=== PATIENT | male | born 1995 | race Caucasian/White ===

== ENCOUNTER 2019-02-01 14:01 | Inpatient (IN) ==
[2019-02-01] MEDS ORDERED: ZOFRAN IV PRN (14:23)
[2019-02-01] MEDS ORDERED: AUGMENTIN PO SCH (14:30)
--- NOTE | 2019-02-01 14:58 | Diag Imaging Result Doc PS360 ---
EXAM: CHEST-2 VIEWS 02/01/2019 HISTORY: Fever TECHNIQUE: AP and lateral chest COMMENT: There are no previous studies. The inspiration is suboptimal. The heart size appears to be enlarged. There is a right-sided ventriculoperitoneal shunt catheter. The lungs are clear. IMPRESSION: Poor inspiration. Apparent cardiomegaly. Electronically signed by Cuate Turner 02/01/2019 2:56 PM
[2019-02-01 15:22] LABS: URINE SOURCE CLEAN CATCH
[2019-02-01 15:26] LABS: BILIRUBIN URINE NEGATIVE (NEGATIVE); BLOOD URINE MODERATE (NEGATIVE); COLOR YELLOW; GLUCOSE URINE NEGATIVE (NEGATIVE); KETONE URINE NEGATIVE (NEGATIVE); LEUKOCYTES URINE LARGE (NEGATIVE); NITRITE URINE NEGATIVE (NEGATIVE); PROTEIN URINE 70 mg/dL (NEGATIVE); SP GRAVITY URINE 1.028; TURBIDITY URINE CLEAR (CLEAR); UROBILINOGEN URINE 4 mg/dL (NORMAL)
[2019-02-01 15:27] LABS: UR EPITHELIAL CELLS <10 /HPF (<10); URINE BACTERIA NEGATIVE /HPF; URINE RBC TNTC /HPF (<10); URINE WBC TNTC /HPF (<10)
[2019-02-01 15:37] LABS: BASO# 0.03 X1000 (0.0-0.2); BASO% 0.2 % (0.0-0.8); EOS# 0.04 X1000 (0.0-0.7); EOS% 0.2 % (0.0-10.0); HEMATOCRIT 44.2 % (42.0-52.0); HEMOGLOBIN 14.5 g/dL (14.0-18.0); IMM GRAN# 0.04 X1000 (0.0-0.04); IMM GRAN% 0.2 % (0.0-0.5); LYMPH# 1.28 X1000 (1.2-3.4); LYMPH% 7.5 % (20.5-51.1); MCH 29.2 PG (27-31); MCHC 32.8 g/dL (33-37); MCV 89.1 FL (81-99); MONO# 1.38 X1000 (0.11-0.59); MONO% 8.1 % (1.7-9.3); MPV 12.3 FL (7.4-10.4); NEUT# 14.31 X1000 (1.4-6.5); NEUT% 83.8 % (42.2-75.2); PLT 203 X1000 (130-400); RBC 4.96 XMIL (4.7-6.1); RDW 13.7 % (11.5-14.5); WBC 17.08 X1000 (4.8-10.8)
[2019-02-01 16:08] LABS: AGAP 14; BUN 11 mg/dL (8-22); CHLORIDE 101 mmol/L (98-107); COSMO 279; CREATININE 1.1 mg/dL (0.7-1.2); ESTIMATED GFR > 60; GLUCOSE 138 mg/dL (70-104); POTASSIUM 3.4 mmol/L (3.5-5.1); SODIUM 139 mmol/L (136-145); TCO2 24 mmol/L (25-35)
[2019-02-01 16:09] LABS: ALB/GLOB RATIO 1.4; ALBUMIN 4.1 g/dL (3.5-5.0); ALKALINE PHOSPHATASE 87 U/L (32-122); AMYLASE 46 U/L (20-200); CALCIUM 8.9 mg/dL (8.8-10.2); GOT 20 U/L (10-34); GPT 22 U/L (10-44); LIPASE 40 U/L (13-60); TOTAL BILIRUBIN 1.11 mg/dL (0.20-1.00); TOTAL PROTEIN 7.1 g/dL (6.3-8.3)
[2019-02-01] MEDS: NS 1,000 ML IV SCH (17:09)
[2019-02-01] MEDS: TYLENOL PO PRN (18:49)
[2019-02-01] MEDS: MIRALAX PO SCH (20:13)
[2019-02-01] MEDS: ZOSYN 3.375 GM in NS 50 ML IV SCH (20:13)
[2019-02-01] MEDS: CLARITIN PO SCH (20:13)
[2019-02-01] MEDS: NORCO-5 PO PRN (20:14)
--- NOTE | 2019-02-01 21:52 | HISTORY AND PHYSICAL ---
PRIMARY CARE PHYSICIAN: Dr. Asa Shin. CHIEF COMPLAINT: Fever. HISTORY OF PRESENT ILLNESS: A 23-year-old white male with a complicated past medical history presents for evaluation of above-mentioned current symptoms. Current history of present illness began on Thursday night. At approximately 9:30, he developed acute onset rectal pain, dysuria, and nausea. Pain remained present throughout the night. He was unable to sleep soundly secondary to the pain. At approximately 10 a.m. he took half of a Loraine and a Diflucan. The symptoms improved significantly. Patient denied fevers, chills, constipation, hematochezia, melena, or low back pain at that time. The patient was seen in my office yesterday evening. Urinalysis at that time was performed revealing modest blood and modest white blood cells. No bacteria was identified. As patient's pain and symptoms had improved considerably, no further intervention was pursued. Overnight, unfortunately, patient states he felt poorly. The patient developed a fever as high as 102. He was unable rest secondary to the fever. He did, however, note improvement in his rectal and urethral pain. The patient contacted my office this morning. A CT renal stone search was performed returning with a small hiatal hernia, prominent fatty infiltration of liver, and constipation. Upon arrival at my office, patient was again febrile. He was noted to have some intermittent nausea and vomiting. His white blood cell count also was noted to be elevated. Because of his condition, it was felt that inpatient management was most appropriate. Upon walking to his car, patient developed profound weakness nearly falling to the ground. The patient will be admitted to the hospital for full evaluation and management. Additional symptoms include only that of headaches. The patient denies current cough, congestion, shortness of breath, chest discomfort, palpitations, sinus tenderness, sore throat, or ear pain. PAST MEDICAL HISTORY: 1. Anxiety. 2. Constipation. 3. Reflux disease. 4. Hypertension. 5. Headaches. 6. Bilateral hearing loss treated with hearing aid intervention. 7. Bilateral inguinal hernia repairs in 1996. 8. History of hydrocephalus at 18 months requiring shunt placement. 9. Incisional hernia diagnosed in 1995 requiring surgical intervention. 10. Legg-Perthes disease status post surgical intervention to the left hip in 2002. 11. Low HDL. 12. Obstructive sleep apnea requiring BiPAP. 13. Osteoarthritis. 14. Osteopenia. 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 16. Chronic otitis media. 17. Hypothyroidism. 18. History of a tonsillectomy and adenoidectomy in 1999. 19. History of a varicocele. 20. Varicose veins. 21. History of deep venous thrombosis treated with fondaparinux. CURRENT MEDICATIONS: 1. AcipHex 20 mg daily. 2. Allopurinol 100 mg daily. 3. Anusol suppositories as needed. 4. Claritin 10 mg at bedtime. Fondaparinux injected daily. 1. Levothyroxine 88 mcg daily. 2. MiraLAX 1/4 of a cap in 8 ounces of juice daily. 3. Loraine 5/325 every 4 to 6 hours as needed. 4. Zofran as needed. ALLERGIES: Patient states he is allergic to Betadine which causes a rash and Versed which causes respiratory compromise. SOCIAL HISTORY: Patient denies tobacco, alcohol or illicit drug use. FAMILY HISTORY: Patient's father is age 49 and reported as healthy. Patient's mother is age 47 and has a history of high blood pressure. REVIEW OF SYSTEMS: A 12 point review of systems was performed. Pertinent positives and negatives are noted in history present illness. PHYSICAL EXAMINATION: Temperature 102.8 degrees, heart rate 114, respirations 20, blood pressure is 112/62. GENERAL: No acute distress. HEENT: Normocephalic, atraumatic, pupils equal, round reactive to light. Extraocular muscles intact. Sclerae anicteric. Innovation conjunctivae. Oral and nasopharynx clear without exudate. NECK: Supple. No lymphadenopathy. No thyromegaly. No bruits auscultated. CARDIOVASCULAR: Tachycardic, regular rhythm. No significant murmurs, rubs, or gallops. PULMONARY: Clear to auscultation bilaterally. ABDOMEN: Soft, nontender, nondistended. Positive bowel sounds. EXTREMITIES: Moves all extremities well. No significant clubbing, cyanosis, or edema. NEUROLOGIC: Cranial nerves 2-12 grossly intact. Motor and sensory grossly intact. PSYCHOLOGIC: Appropriate. LABORATORY DATA: White blood cell count 17.08, hemoglobin 14.5, hematocrit 44.2, platelet count 230,000. Sodium 139, potassium 3.4, chloride 101, bicarb 24, BUN 11, creatinine 1.1, glucose 138, calcium 8.9, total bilirubin 1.11, total protein 7.1, albumin 4.1, alkaline phosphatase 87, AST 20, ALT 22, amylase 46, lipase 40. Urinalysis reveals too many to count white blood cells and too many to count red blood cells. Negative bacteria. Chest x-ray revealed poor inspiration. Apparent cardiomegaly. CT renal stone search suggested a small hiatal hernia, prominent fatty infiltration of the liver and constipation. ASSESSMENT/PLAN: 23-year-old white male with a complicated past medical history presents for evaluation of fevers. As above, while in office, patient developed intractable nausea and vomiting and a near syncopal episode. Thus far, the source of the infection is queried but possibly related to an abnormal urinalysis. The patient will be admitted to the hospital for full evaluation and management. 1. Admit to General Medicine. 2. Fevers-upon admission, patient was noted to have a high fever. Rapid strep and rapid flu returned negative. Urinalysis is borderline. We will draw blood cultures x2. We will empirically place patient on Zosyn therapy. We will remain aware that patient could have sinus disease or progressive of his otitis, however with the degree of fever, this seems less likely. Should patient's fever continue, we will consider broadening coverage with vancomycin therapy. 3. Intractable nausea and vomiting-this likely is a consequence of his high fever. The patient has no significant abdominal discomfort. At this point, we will treat supportively. We will start patient on IV hydration. 4. Near syncopal episode-this likely was a consequence of a vasovagal event. We will treat patient with IV hydration. We will follow this closely as well. 5. Lower abdominal discomfort-this has essentially resolved from yesterday. The question is raised whether this is also a source of his fever. The patient does have constipation per CT scan. We will work toward evacuating this with MiraLAX. We will follow this as well. 6. History of hydrocephalus-at this point, this likely is noncontributory. Should etiology of the infection remain queried, we will consider whether his shunt could be infected. This seems less likely without mental status changes. 7. Recurrent deep venous thromboses-we will continue patient on fondaparinux therapy. 8. Fluid, electrolytes, nutrition. We will monitor electrolytes. Normal saline at 50 mL an hour. Regular diet. 9. Prophylaxis. Patient will be continued on fondaparinux. Steven#: [id number] cc: Asa Shin MD
[2019-02-02] MEDS: ZOSYN 3.375 GM in NS 50 ML IV SCH ×3 (01:42→13:58)
[2019-02-02] MEDS: TYLENOL PO PRN ×4 (01:42→17:12)
[2019-02-02] MEDS: NORCO-5 PO PRN (02:38)
[2019-02-02] MEDS: PATIENT'S OWN MED SUBQ SCH ×2 (06:39→20:05)
[2019-02-02 06:53] LABS: BASO# 0.04 X1000 (0.0-0.2); BASO% 0.2 % (0.0-0.8); EOS# 0.01 X1000 (0.0-0.7); HEMOGLOBIN 13.8 g/dL (14.0-18.0); IMM GRAN# 0.09 X1000 (0.0-0.04); IMM GRAN% 0.4 % (0.0-0.5); LYMPH# 2.21 X1000 (1.2-3.4); LYMPH% 9.8 % (20.5-51.1); MCH 29.4 PG (27-31); MCHC 32.9 g/dL (33-37); MCV 89.6 FL (81-99); MONO# 1.52 X1000 (0.11-0.59); MONO% 6.7 % (1.7-9.3); MPV 12.2 FL (7.4-10.4); NEUT# 18.79 X1000 (1.4-6.5); NEUT% 82.9 % (42.2-75.2); PLT 168 X1000 (130-400); RBC 4.69 XMIL (4.7-6.1); RDW 13.8 % (11.5-14.5); WBC 22.66 X1000 (4.8-10.8)
[2019-02-02 06:56] LABS: AGAP 10; ALB/GLOB RATIO 1.1; ALBUMIN 3.2 g/dL (3.5-5.0); ALKALINE PHOSPHATASE 74 U/L (32-122); BUN 10 mg/dL (8-22); CHLORIDE 102 mmol/L (98-107); COSMO 278; ESTIMATED GFR > 60; GLUCOSE 149 mg/dL (70-104); GOT 36 U/L (10-34); GPT 32 U/L (10-44); POTASSIUM 3.5 mmol/L (3.5-5.1); SODIUM 138 mmol/L (136-145); TCO2 26 mmol/L (25-35); TOTAL BILIRUBIN 1.37 mg/dL (0.20-1.00)
[2019-02-02] MEDS ORDERED: VANCOMYCIN IV PER PHARMACY MISC SCH (07:15)
[2019-02-02] MEDS ORDERED: ZOSYN ONE (08:59)
[2019-02-02] MEDS ORDERED: VANCOMYCIN 1,600 MG in NS 250 ML IV SCH (09:00)
[2019-02-02] MEDS: ZYLOPRIM PO SCH ×2 (09:51→12:32)
[2019-02-02] MEDS: PRILOSEC PO SCH (09:53)
[2019-02-02] MEDS: NS 1,000 ML IV SCH ×2 (14:37→14:39)
[2019-02-02] MEDS ORDERED: CUBICIN 500 MG in NS 100 ML IV SCH (17:00)
--- NOTE | 2019-02-02 17:21 | Diag Imaging Result Doc PS360 ---
EXAM: US RENAL 2 (RETROPER) COMPLETE 02/02/2019 HISTORY: UTI TECHNIQUE: Renal ultrasound COMMENT: The right kidney is 12.6 x 4.8 x 6.1 cm the left is 11.3 x 5.3 x 6.4 cm. There is no evidence of hydronephrosis or mass. The urinary bladder is not particularly distended and has a prevoid volume of 328.6 mL and a postvoid volume of 18.3 mL. IMPRESSION: No evidence of obstructive uropathy. Electronically signed by Cuate Turner 02/02/2019 5:19 PM
[2019-02-03] MEDS: TYLENOL PO PRN ×2 (00:15→19:48)
[2019-02-03] MEDS: CLARITIN PO SCH ×3 (00:51→20:03)
[2019-02-03] MEDS: MIRALAX PO SCH ×3 (00:51→20:03)
--- NOTE | 2019-02-03 04:24 | INFECTIOUS DISEASE CONSULT REP ---
DATE: 02/02/2019 CONCLUSION: The patient has a gram-positive coccal urinary tract infection. I am concerned that he may have some sort of blockage which either prevents him from passing his urine from the bladder, or if he has blockage in one of his ureters causing hydronephrosis. RECOMMENDATIONS: I have discontinued Zosyn and vancomycin, and I have started the patient on daptomycin. I have also ordered a bladder scan to be done, and I have also ordered a ultrasound of the kidneys with measurement of the postvoid residual urine. DISCUSSION: The patient's history was obtained from his mother. The patient about 4 days ago had dysuria and rectal pain. His urinalysis showed white cells and red cells, but no bacteria. He has had high fever. He also has a sensation that his ears are full. His CBC shows a white count of 22,660, hemoglobin 13.8. The patient also today had some loose stools. He also is anorectic in the past day or 2. He also has some dizziness. LABORATORY DATA: Laboratory studies show a CBC with a white count of 22,660, hemoglobin 13.8 and platelet count 168,000. Creatinine is 1. GFR is greater than 60. Urinalysis showed white cells and red cells, but no bacteria. Swab for influenza and streptococcal tests are both negative. The urine is growing a gram-positive coccus. PAST MEDICAL HISTORY/REVIEW OF SYSTEMS: The patient has decreased hearing, but his vision is okay. He does not have any problem breathing. Normally he has good appetite and he is able to pass his urine and bowel movements without difficulty. He has not been having any joint pain or muscle aches. Medical diseases positive for hypothyroidism, gout, deep venous thrombosis in the right leg, and gastroesophageal reflux disease. INFECTIOUS DISEASE HISTORY: Negative for pneumonia and UTI. FAMILY HISTORY: Positive for hypertension and myocardial infarction. SOCIAL HISTORY: The patient lives with his mother. The patient has a dog as a pet. He does not smoke cigarettes, drink alcoholic beverages or abuse drugs. ALLERGIES: He is allergic to Betadine. MEDICATIONS: At home he takes Synthroid, allopurinol, fondaparinux, hydrocodone, Claritin, Prilosec, Zofran, MiraLAX. PHYSICAL EXAMINATION: Vital signs: Temperature is 102.9 degrees, pulse 99, respirations 16, blood pressure 122/84. Generally, this is an ill-appearing young male. He is in no acute distress. Head, eyes, ears, nose and throat: He is wearing hearing aids. He has marked deformity to his face. There is no drainage from his nose or ears.Neck: No meningismus. Lungs clear to auscultation. Cardiovascular: Heart rate is regular. Abdomen is soft and nontender. Genitalia: There is some slight erythema of the scrotum. It is not swollen. It is not tender. The patient's mother says that he does sometimes have a little erythema on the scrotum. Visual inspection of the rectum showed some small tissues coming out. I do not think they were hemorrhoids. There was no bleeding noted. Neurologic: The patient is awake. He can talk and he can hear my spoken words. There is no tremor. Integument: No rash. Thank you for the consult. cc: MD Asa Sena MD
[2019-02-03 07:11] LABS: BASO# 0.02 X1000 (0.0-0.2); BASO% 0.1 % (0.0-0.8); EOS# 0.16 X1000 (0.0-0.7); EOS% 1.1 % (0.0-10.0); HEMATOCRIT 38.6 % (42.0-52.0); HEMOGLOBIN 12.7 g/dL (14.0-18.0); IMM GRAN# 0.05 X1000 (0.0-0.04); IMM GRAN% 0.3 % (0.0-0.5); LYMPH# 1.91 X1000 (1.2-3.4); LYMPH% 13.1 % (20.5-51.1); MCH 29.6 PG (27-31); MCHC 32.9 g/dL (33-37); MONO# 1.01 X1000 (0.11-0.59); MONO% 6.9 % (1.7-9.3); MPV 12.4 FL (7.4-10.4); NEUT# 11.43 X1000 (1.4-6.5); NEUT% 78.5 % (42.2-75.2); PLT 134 X1000 (130-400); RBC 4.29 XMIL (4.7-6.1); RDW 13.5 % (11.5-14.5); WBC 14.58 X1000 (4.8-10.8)
--- NOTE | 2019-02-03 07:21 | PROGRESS NOTE ---
DATE: 02/02/2019 SUBJECTIVE: Upon my arrival this morning, unfortunately, the patient continued to have fever. He denied specific symptoms, however. Antibiotics have been continued. His fevers were treated with Tylenol therapy. With the persistence of fevers, antibiotics were broad. During the day today, a urine culture returned positive for gram-positive cocci. Dr. Nguyen was consulted. Antibiotics were adjusted to include only daptomycin therapy. This evening, patient is resting in bed. He, unfortunately, continues to have fever. He denies dysuria, hematuria, pyuria, cough, congestion, or shortness of breath. OBJECTIVE: T-max 102.9, heart rate 99 to 124, respirations 16 to 20, blood pressure 112-142/62- 100. General: No acute distress. Cardiovascular: Slightly tachycardic. Regular rhythm. No significant murmurs, rubs, or gallops. Pulmonary: Clear to auscultation bilaterally. Abdomen: Soft, nontender, nondistended. Positive bowel sounds. Extremities: Moves all extremities well. No significant clubbing, cyanosis, or edema. Dermatologic: Evaluation reveals no evidence of rash. Laboratory Data: White blood cell count 22.66, hemoglobin 13.8, hematocrit 42.0, platelet count 168,000. Sodium 138, potassium 3.5, chloride 102, bicarb 26, BUN 10, creatinine 1.0, glucose 149, calcium 8.0. Total bilirubin 1.37, total protein 6.0, albumin 3.2, alkaline phosphatase 74, AST 36, ALT 32. ASSESSMENT AND PLAN: 1. Fevers-at this point, this appears to be secondary to a urinary tract infection. I remain concerned, however, that the patient's presentation was atypical. He remains afebrile despite antibiotic intervention. Also, on the differential is that of a prostatitis, sinus disease, and occult abscess. We will follow patient's urine cultures. We will also follow wound cultures. I appreciate Dr. Nguyen' consultation. We will continue daptomycin for now. 2. Intractable nausea and vomiting-patient has achieved improvement in this regard. We will continue as-needed Zofran therapy. 3. Near syncopal episode-this likely was secondary to his acute illness. We will continue hydration. 4. Lower abdominal discomfort/pelvic discomfort - this certainly could be secondary to prostatitis. We will also remain aware that the CT scan suggested significant constipation, that this could also be the source. Overall, his symptoms are improving. We will continue treatment as above. 5. History of hydrocephalus with a shunt placed. We will remain aware that patient could have developed a shunt infection. However, this seems less likely with normal mental status. 6. Recurrent deep venous thromboses-we will continue fondaparinux therapy. 7. Disposition-at this point, patient continues to require chcf care in a hospital setting. We will plan discharge home once appropriate. cc: Asa Shin MD MTDD
[2019-02-03 07:52] LABS: AGAP 9; ALBUMIN 2.9 g/dL (3.5-5.0); ALKALINE PHOSPHATASE 88 U/L (32-122); BUN 8 mg/dL (8-22); CALCIUM 8.5 mg/dL (8.8-10.2); CHLORIDE 105 mmol/L (98-107); COSMO 278; CREATININE 0.9 mg/dL (0.7-1.2); ESTIMATED GFR > 60; GLUCOSE 105 mg/dL (70-104); GOT 30 U/L (10-34); GPT 39 U/L (10-44); POTASSIUM 3.7 mmol/L (3.5-5.1); SODIUM 140 mmol/L (136-145); TCO2 26 mmol/L (25-35); TOTAL BILIRUBIN 1.17 mg/dL (0.20-1.00); TOTAL PROTEIN 5.9 g/dL (6.3-8.3)
[2019-02-03] MEDS: SYNTHROID PO SCH (12:04)
[2019-02-03] MEDS: AMPICILLIN 2 GM/NS 2 GM/100 ML IVPB IV SCH ×2 (12:05→18:09)
[2019-02-03] MEDS: PRILOSEC PO SCH (12:05)
[2019-02-03] MEDS: NORCO-5 PO PRN (14:04)
[2019-02-03] MEDS: ZYLOPRIM PO SCH (14:28)
--- NOTE | 2019-02-03 15:29 | INFECTIOUS DISEASE PROGRESS NO ---
DATE: 02/03/2019 PRESENT ILLNESS: The patient has an enterococcal urinary tract infection. In view of the fact that the patient has had a high fever and leukocytosis and has been very ill with his urinary tract infection, I suspect that it involves his prostate and possibly his kidneys, even though on ultrasound there did not seem to be any kidney involvement. MEDICATIONS: The patient was on daptomycin. I have switched him today to ampicillin 2 g IV every 6 hours. PHYSICAL EXAMINATION: Vital Signs: Temperature is 100.4 degrees, pulse 106, respirations 18, blood pressure 145/103. General: This is an obese young male. He is in no acute distress. Head/eyes/ears/nose/throat: He can hear my spoken words and see near objects. He does have a facial deformity. He does not have any white patches on his tongue. Neck: He does not seem to have any pain when he moves his neck or head. Lungs: Clear to auscultation. Cardiovascular: Heart rate is regular. Abdomen: There is no abdominal or flank tenderness. Neurologic: Patient is alert. He can move his extremities. There is no tremor. LAB AND X-RAY: The patient's urine culture grew out Enterococcus. The CBC today shows the white count is down to 14,580, hemoglobin 12.7, and platelet count 134,000. Creatinine is 0.9. GFR is greater than 60. Liver function studies are normal. Blood cultures are negative. The patient's renal ultrasound showed no abnormalities, and it also showed that the patient empties his bladder almost completely. ASSESSMENT AND PLAN: The patient has an enterococcal urinary tract infection. It may well involve his prostate and/or kidneys. I would suggest treating the patient with IV ampicillin until he is afebrile, and his white count is either normal or very close to being normal. When that is reached, then I think the patient can be switched to amoxicillin 500 mg p.o. every 8 hours to complete a total of 2 weeks of treatment. Furthermore, I would suggest that after he has finished his antibiotic for a week, I would suggest repeating his urine culture and, if it grows Enterococcus again, then I would suggest treating him with amoxicillin 500 mg oral every 8 hours for a total of 6 weeks. COMORBIDITIES: The patient's comorbidities: I cannot really find a comorbidity that causes this patient to have a urinary tract infection. cc: MD Asa Sena MD
--- NOTE | 2019-02-03 22:25 | PROGRESS NOTE ---
DATE: 02/03/2019 SUBJECTIVE: Patient was originally seen this morning. At that time, patient stated that he had rested better overnight. His fevers continued, but have decreased considerably with the use of Tylenol. The patient noted an increase in energy. His p.o. intake was adequate. This afternoon, upon my arrival, patient noted a reasonable day. His fever had been low grade. He denies nausea, vomiting, shortness of breath, or chest discomfort. He is having frequent loose stools. He denies dysuria, hematuria, and pyuria. OBJECTIVE: Vital Signs: T-max 102.5 degrees, heart rate 92 to 120, respirations 16 to 20, blood pressure 135 to 152 over 80 to 103. General: No acute distress. Cardiovascular: Regular rate and rhythm. No significant murmurs, rubs, or gallops. Pulmonary: Clear to auscultation bilaterally. Abdomen: Soft, nontender, nondistended. Positive bowel sounds. Extremities: Moves all extremities well. No significant clubbing, cyanosis, or edema. Dermatologic: Evaluation reveals no evidence of rash. LABORATORY DATA: White blood cell count 14.58, hemoglobin 12.7, hematocrit 38.6, platelet count 134,000. Sodium 140, potassium 3.7, chloride 105, bicarb 26, BUN 8, creatinine 0.9, glucose 105, calcium 8.5, total bilirubin 1.17, total protein 5.9, albumin 2.9, alkaline phosphatase 88, AST 30, ALT 39. Urine culture has grown Enterococcus faecalis. ASSESSMENT AND PLAN: 1. Fever, secondary to urinary tract infection/prostatitis: Patient's urine culture grew Enterococcus faecalis. Blood cultures are negative. Unfortunately, he continues to have fairly significant fevers. For now, we will continue ampicillin as recommended per Dr. Nguyen. Once the patient is afebrile for 48 hours, we will plan discharge home. 2. Intractable nausea and vomiting: This is likely secondary to his acute illness. This has resolved. He is currently being treated with as needed Zofran. 3. Near syncopal episode: Again, this likely is secondary to the acute illness. With hydration, he has not experienced a recurrence. 4. Lower abdominal discomfort/pelvic discomfort: At this point, I suspect this was secondary to prostatitis. We will treat patient as described above. 5. Recurrent deep venous thrombosis: We will continue patient on fondaparinux therapy. 6. Disposition: At this point, patient continues to require long-term care in a hospital setting. We will plan discharge home once appropriate. cc: Asa Shin MD
[2019-02-04] MEDS: AMPICILLIN 2 GM/NS 2 GM/100 ML IVPB IV SCH ×4 (00:31→20:20)
[2019-02-04 07:36] LABS: BASO# 0.02 X1000 (0.0-0.2); BASO% 0.3 % (0.0-0.8); EOS# 0.17 X1000 (0.0-0.7); EOS% 2.2 % (0.0-10.0); HEMOGLOBIN 12.4 g/dL (14.0-18.0); LYMPH# 1.73 X1000 (1.2-3.4); LYMPH% 22.2 % (20.5-51.1); MCH 29.5 PG (27-31); MCHC 32.6 g/dL (33-37); MCV 90.3 FL (81-99); MONO# 0.69 X1000 (0.11-0.59); MONO% 8.8 % (1.7-9.3); MPV 12.9 FL (7.4-10.4); NEUT# 5.19 X1000 (1.4-6.5); NEUT% 66.5 % (42.2-75.2); PLT 144 X1000 (130-400); RBC 4.21 XMIL (4.7-6.1); RDW 13.4 % (11.5-14.5)
[2019-02-04] MEDS: PRILOSEC PO SCH (08:39)
[2019-02-04] MEDS: ZYLOPRIM PO SCH (10:08)
[2019-02-04] MEDS: SYNTHROID PO SCH (11:22)
--- NOTE | 2019-02-04 11:23 | INFECTIOUS DISEASE PROGRESS NO ---
DATE: 02/04/2019 PRESENT ILLNESS: The patient has an Enterococcal urinary tract infection. Yesterday, he had diarrhea, and I am concerned that this could be due to Clostridium difficile. MEDICATIONS: The patient yesterday was switched to ampicillin 2 g IV every 6 hours. PHYSICAL EXAMINATION: Vital signs: Earlier, the patient's temperature was 102.2, currently it is 99.2, pulse 89, respirations 20, blood pressure 150/108. General: This is an obese young male. He is in no acute distress, and the patient and the family member are present, both said that the patient is doing better. Head, Eyes, Ears, Nose, and Throat: He can hear my spoken words and can see near objects. He has a white coating of his tongue. He does not have any pain in his tongue and I do not think that the white coating is due to candidiasis because usually with dionte there is a raised plaque-like lesion seen. Neck: No stiffness. Lungs: Clear to auscultation. Cardiovascular: Heart rate is regular. Abdomen: Soft and nontender. Neurologic: The patient is alert. He can move his extremities. There is no tremor. LABORATORY AND X-RAY: There is no new radiographic study. CBC for today has a white count of 7800, hemoglobin 12.4, and platelet count 144,000. ASSESSMENT AND PLAN: The patient has an Enterococcal urinary tract infection with most likely involvement of the prostate. The plan is to treat with IV ampicillin at its current dose of 2 g every 6 hours until the patient is afebrile and then switch him to amoxicillin 500 mg p.o. every 8 hours and treat for at least a 2 week period with a repeat urine culture a week after stopping antibiotics. Regarding the patient's diarrhea, he has not had any diarrhea today, but if he does have it I have put in an order for it to be sent for Clostridium difficile antigen. The patient's comorbidity, I cannot find a comorbidity that would predispose him to develop a urinary tract infection. cc: MD Asa Sena MD
[2019-02-04] MEDS: CLARITIN PO SCH (20:20)
[2019-02-04] MEDS: VANCOCIN PO SCH (20:21)
[2019-02-05] MEDS: PATIENT'S OWN MED SUBQ SCH (02:42)
[2019-02-05] MEDS: AMPICILLIN 2 GM/NS 2 GM/100 ML IVPB IV SCH (05:56)
[2019-02-05] MEDS: VANCOCIN PO SCH (05:56)
[2019-02-05 08:39] VITALS: BP 143/95
[2019-02-05] MEDS: PRILOSEC PO SCH (09:00)
[2019-02-05] MEDS: ZYLOPRIM PO SCH (09:00)
[2019-02-05] MEDS: SYNTHROID PO SCH (09:01)
--- NOTE | 2019-02-05 09:16 | PROGRESS NOTE ---
DATE: 02/04/2019 PRIMARY CARE PHYSICIAN: Dr. Asa Shin. SUBJECTIVE: Patient was originally seen this morning. At that time, patient noted improvement in his overall condition. His last fever had been overnight. He slept reasonably well thereafter. Throughout the day today, patient did reasonably well. His biggest concern was that of frequent loose stools. He denied abdominal discomfort, nausea, vomiting, shortness of breath, or chest discomfort. Energy level is improving. He walked in the [place] several times with family. OBJECTIVE: T-max 102.5 degrees, heart rate 65 to 120, respirations 18 to 20, blood pressure 117- 152/69-101.General: No acute distress. Cardiovascular: Slightly tachycardic. Regular rhythm. No significant murmurs, rubs, or gallops. Pulmonary: Clear to auscultation bilaterally. Abdomen: Soft, nontender, nondistended. Positive bowel sounds. Extremities: Moves all extremities well. No significant clubbing, cyanosis, or edema. Dermatologic: Evaluation reveals no evidence of rash. LABORATORY DATA: White blood cell count 7.80, hemoglobin 12.4, hematocrit 38.0, platelet count 144,000. ASSESSMENT AND PLAN: 1. Fever secondary to urinary tract infection/prostatitis-overall, patient's temperature curve is trending downwards. His last true fever was approaching 24 hours ago. Urine culture ultimately grew Enterococcus faecalis. We will continue ampicillin per recommendations by Dr. Nguyen. If patient's condition continues to improve, we will consider discharge home with amoxicillin in the near future. 2. 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 We will treat patient with vancomycin therapy. We will initiate therapy to complete a 10 to 14 day course. We will continue symptomatic management for diarrhea. 3. Intractable nausea, vomiting-patient has achieved improvement. This likely was secondary to his acute illness. 4. Near syncopal episode-patient has had no further episodes since treatment of his underlying urinary tract infection/prostatitis and hydration. 5. Lower abdominal discomfort/pelvic discomfort-this has resolved. This likely was a consequence of his prostatitis. 6. Recurrent deep venous thrombosis-will continue patient on fondaparinux therapy. 7. Disposition-at this point, patient continues to require chcf care in a hospital setting. We will plan discharge home once appropriate. cc: Asa Shin MD
--- NOTE | 2019-02-05 20:40 | DISCHARGE SUMMARY ---
ADMISSION DATE: 02/01/2019 DISCHARGE DATE: 02/05/2019 ADMISSION DIAGNOSIS: Fevers. DISCHARGE DIAGNOSES: 1. Fever secondary to urinary tract infection/prostatitis, improved. 2. Clostridium difficile antigen positive/Clostridium difficile toxin negative. 3. Intractable nausea and vomiting, resolved. 4. Near syncopal episode likely secondary to acute infection. 5. Lower abdominal discomfort/pelvic discomfort, likely secondary to acute urinary tract infection and prostatitis. 6. Recurrent deep venous thrombosis, present on arrival. CONSULTATIONS: Dr. Nguyen with Infectious Disease was consulted for further evaluation and management of persistent fevers. PROCEDURES: 1. A chest x-ray was performed on 02/01/2019 which revealed poor inspiration. Apparent cardiomegaly. 2. A renal ultrasound was performed on 02/01/2019 which revealed no evidence of obstructive uropathy. HISTORY AND PHYSICAL EXAMINATION: See admit note. PHYSICAL EXAMINATION PRIOR TO DISCHARGE: Temperature 98.2 degrees, heart rate 88, respirations 18, blood pressure is 143/95. General: No acute distress. Cardiovascular: Regular rate and rhythm. No significant murmurs, rubs, or gallops. Pulmonary: Clear to auscultation bilaterally. Abdomen: Soft, nontender, nondistended. Positive bowel sounds. Extremities: Moves all extremities well. No significant clubbing, cyanosis, or edema. Dermatologic: Evaluation reveals no evidence of rash. LABORATORY DATA PRIOR TO DISCHARGE: None. HOSPITAL COURSE: Patient was admitted as per history and physical examination. Hospital course per condition is as follows: 1. Fever secondary to urinary tract infection/prostatitis-upon admission, patient was noted to have a significant fever as high as 103.3. Full evaluation was pursued. White blood cell count was noted to be elevated. Urinalysis demonstrated too many to count white blood cells but negative bacteria. Urine was sent for culture. Blood cultures were also drawn. The patient was placed on broad-spectrum antibiotic therapy. Dr. Nguyen was consulted with Infectious Disease secondary to persistent high fevers. Ultimately, patient grew enterococcus faecalis from his urine. Blood cultures remained negative. The patient continued to spike fevers as high as 102.5 until 02/03/2019. Since that time his fever has resolved. Antibiotics have been dictated per Dr. Nguyen. Once cultures were achieved, patient was changed to ampicillin while hospitalized and will be discharged home with 14 additional days of amoxicillin. Because of the persistence of fevers and his pelvic pain, it was felt this likely was more than simply a urinary tract infection, but also involved a prostatitis. We will plan to recheck a urinalysis and urine culture 1 week after antibiotic intervention. If this returns negative, we will consider 6 weeks worth of therapy. We will continue to follow patient's clinical course closely. Of note, a postvoid residual was performed while hospitalized which returned acceptable. 2. Clostridium difficile antigen positive/Clostridium difficile toxin negative- because of loose stools, C difficile antigen and toxin were performed with noted results. As patient will be discharged home on antibiotics. As he is at risk for developing Clostridium difficile colitis, he will be treated aggressively. At this point, I suspect his diarrhea was simply antibiotic associated rather than infectious. We will treat patient with 18 days of oral vancomycin therapy. We will follow this closely as an outpatient. 3. Intractable nausea and vomiting-the patient was diagnosed upon admission, likely secondary to his acute infection. With treatment of his underlying urinary tract infection and prostatitis, these symptoms improved. We will continue symptomatic management with as-needed Zofran as an outpatient. 4. Near syncopal episode-this occurred while leaving my office going to the hospital. Again, this likely was secondary to his acute illness. With hydration and treatment of his urinary tract infection/prostatitis, he did not experience a recurrence while hospitalized. 5. Lower abdominal discomfort/pelvic discomfort-this likely was a consequence of underlying prostatitis. We will treat as described above. 6. Recurrent deep venous thrombosis-patient was continued on fondaparinux while hospitalized. We will follow this as an outpatient as well. DISCHARGE CONDITION: Good. DISPOSITION: Discharge to home. MEDICATIONS: 1. Allopurinol 100 mg daily. 2. Fondaparinux 2.5 mg at bedtime. 3. Lyman 5/325 every 4 to 6 hours as needed. 4. Levothyroxine 88 mcg daily. 5. Loratadine 10 mg at bedtime. 6. AcipHex 20 mg at bedtime. 7. Vancomycin 125 mg every 6 hours for 18 days. 8. Amoxicillin 500 mg every 8 hours for 14 days. 9. Culturelle daily. 10. Zofran 4 mg every 6 hours as needed. 11. Polyethylene glycol at bedtime as needed. FOLLOWUP: The patient is to follow up with me in approximately 1 to 2 weeks. cc: Asa Shin MD MTDD
== END 2019-02-05 12:31 | disposition home or self-care (01) | DRG 690 ==
LOC: DIRADM 14:01 → 4N 14:15
PROVIDERS: ADMIT Internal Medicine; ATTEND Internal Medicine